=== PATIENT | male | born 1945 | race Caucasian/White ===

== ENCOUNTER 2016-10-08 15:31 | Day surgery (SDC) | payer MEDICARE, OTHER ==
[~2016-10-08 15:31] MED LIST: Depo-Medrol 40 MG/ML IM ONE; Sensorcaine 0.25% 10 ML IJ ONE; Sodium Chloride 0.9(Preservative Free) 10 ML IJ ONE
[2016-10-08 18:19] VITALS: BP 180/100; PULSE 70; O2SAT 100
[2016-10-08] MEDS ORDERED: Lactated Ringers 1,000 ML IV SCH (18:30)
[2016-10-08] MEDS ORDERED: KEFZOL 1 GM ONE (19:30)
--- NOTE | 2016-10-08 21:07 | XRAY ---
Indication: Caudal BILL. Intraoperative fluoroscopy was provided for 8 seconds. 2 digital spot lateral images of the lumbosacral junction submitted for interpretation demonstrates posterior spinal needle with the tip projecting posterior to the inferior sacrum. Small amount of contrast injected for needle tip placement. Correlate with intraoperative findings/report.
--- NOTE | 2016-10-09 08:51 | XRAY ---
8 seconds fluoroscopy time in surgery for caudal BILL.
== END 2016-10-08 19:31 | disposition home or self-care (01) ==
LOC: SDC-PAIN 15:31
PROVIDERS: ATTEND Pain Medicine Interventional Pain Medicine
DX: M48.06 Spinal stenosis, lumbar region (principal); M51.36 Other intervertebral disc degeneration, lumbar region
CPT/HCPCS: 62323; 72020; 77003; J0690; J1030; Q9967

== ENCOUNTER 2016-11-06 07:04 | Day surgery (SDC) | payer MEDICARE, OTHER ==
[2016-11-06] MEDS ORDERED: Sodium Chloride 0.9% 1000 ML 1,000 ML IV SCH (07:30)
[2016-11-06] MEDS ORDERED: DEMEROL 50 MG IJ ONE (08:00)
[2016-11-06] MEDS ORDERED: VERSED 5 MG/5 ML IV ONE (08:00)
[2016-11-06] MEDS ORDERED: Sodium Chloride 0.9% 1000 ML 1,000 ML ONE (09:21)
[2016-11-06 11:22] VITALS: BP 121/64; PULSE 55; O2SAT 93
--- NOTE | 2016-11-07 07:34 | OP ---
SURGERY DATE/TIME: 11/06/2016908 PREOPERATIVE DIAGNOSIS: Blood per rectum. POSTOPERATIVE DIAGNOSIS: Basically normal, moderate internal hemorrhoids. PROCEDURE: Colonoscopy complete to cecum. SURGEON: Scout Nguyen M.D. ANESTHESIA: IV sedation. COMPLICATIONS: None. CONDITION: Stable. INDICATION: The patient presents with blood per rectum. DESCRIPTION OF PROCEDURE: Taken to the endoscopy suite. Left lateral decubitus position. IV sedation titrated. Oximeter kept over 90%. The scope was introduced. The scope advanced to the cecum. A good prep was present 04/22. On circumferential withdrawal no mucosal lesions. There was moderate internal hemorrhoid. The patient tolerated the procedure satisfactorily with oximeter kept over 90%. IMPRESSION: Moderate internal hemorrhoids. No polyps. No mucosal lesions. No sign of bleeding.
== END 2016-11-06 10:40 | disposition home or self-care (01) ==
LOC: SDC 07:04
PROVIDERS: ATTEND Surgery
PROC: 0DJD8ZZ Inspection of Lower Intestinal Tract, Via Natural or Artificial Opening Endoscopic (ICD-10-PCS; principal; 2016-11-06)
DX: K64.8 Other hemorrhoids (principal); K62.5 Hemorrhage of anus and rectum
CPT/HCPCS: J2175; J2250

== ENCOUNTER 2017-01-07 07:58 | Day surgery (SDC) | payer MEDICARE, OTHER ==
[2017-01-07] MEDS ORDERED: Kenalog-40 IM ONE (08:00)
[2017-01-07] MEDS ORDERED: Sensorcaine 0.25% 10 ML IJ ONE (08:00)
[2017-01-07] MEDS ORDERED: Lactated Ringers 1,000 ML IV ONE (08:00)
[2017-01-07] MEDS ORDERED: DIPRIVAN 200 MG/20 ML IV ONE (09:00)
--- NOTE | 2017-01-07 11:14 | XRAY ---
Indication: Left L3-S1 MBB. Intraoperative fluoroscopy was provided for 8 seconds. Single digital spot image submitted for interpretation demonstrates posterior spinal needles with the tips projecting over the expected course of the left L3-S1 nerve roots. Correlate with intraoperative findings/report.
--- NOTE | 2017-01-07 14:56 | XRAY ---
8 seconds fluoroscopy time in surgery for left side L3-S1 MBB.
== END 2017-01-07 09:45 | disposition home or self-care (01) ==
LOC: SDC-PAIN 07:58
PROVIDERS: ATTEND Pain Medicine Interventional Pain Medicine
DX: M48.06 Spinal stenosis, lumbar region (principal); M51.36 Other intervertebral disc degeneration, lumbar region; M54.5 Low back pain
CPT/HCPCS: 64493; 64494; 64495; 72020; 77003; J2704; J3301

== ENCOUNTER 2017-02-11 08:40 | Day surgery (SDC) | payer MEDICARE, OTHER ==
[~2017-02-11 08:40] MED LIST changes: -Depo-Medrol 40 MG/ML IM ONE; +Kenalog-40 IM ONE; +Lactated Ringers 1,000 ML IV ONE; -Sodium Chloride 0.9(Preservative Free) 10 ML IJ ONE
[2017-02-11] MEDS ORDERED: DIPRIVAN 200 MG/20 ML IV ONE (11:30)
--- NOTE | 2017-02-11 17:18 | XRAY ---
11 seconds fluoroscopy time for Lt side L2-5 MBB.
--- NOTE | 2017-02-13 02:22 | XRAY ---
Indication: Right L2-L5 MBB. Intraoperative fluoroscopy was provided for 11 seconds. Single digital spot image is submitted for interpretation and demonstrates posterior spinal needles with the tips projected over the expected course of the right L2-L5 nerve roots. Correlate with intraoperative findings/report.
== END 2017-02-11 11:00 | disposition home or self-care (01) ==
LOC: SDC-PAIN 08:40
PROVIDERS: ATTEND Pain Medicine Interventional Pain Medicine
DX: M48.06 Spinal stenosis, lumbar region (principal); M51.36 Other intervertebral disc degeneration, lumbar region; M54.5 Low back pain; M47.816 Spondylosis without myelopathy or radiculopathy, lumbar region
CPT/HCPCS: 64493; 64494; 64495; 72020; 77003; J2704; J3301

== ENCOUNTER 2017-10-28 08:34 | Day surgery (SDC) | payer MEDICARE, OTHER ==
[2017-10-28] MEDS ORDERED: Xylocaine 1% Vial 30 ML PF IJ ONE (08:35)
[2017-10-28] MEDS ORDERED: Marcaine 0.5% SDV 10 ML IJ ONE (08:35)
[2017-10-28] MEDS ORDERED: DIPRIVAN 200 MG/20 ML IV ONE (08:35)
[2017-10-28] MEDS ORDERED: Lactated Ringers 1,000 ML IV ONE (08:35)
[2017-10-28 09:10] LABS: Hematocrit 35.7 % (42-50); Hemoglobin 11.7 gm/dl (12.5-18.0); Mean Cell Volume 95.7 fl (78-100); Mean Corpuscular Hgb Concent. 32.8 g/dl (32-36); Mean Platelet Volume 8.7 fl (6-9.5); Platelet Count 253 K/mm3 (150-450); Red Blood Count 3.73 M/mm3 (4.1-5.6); Red Cell Distribution Width 14.9 % (11.5-14.0); White Blood Count 5.9 K/mm3 (4.0-10.5)
[2017-10-28 09:12] LABS: Mean Corpuscular Hemoglobin 31.3 pg (26-32)
[2017-10-28 09:33] LABS: INR 1.11 (0.8-3.0)
[2017-10-28 09:35] LABS: PTT 38.4 SECONDS (24.1-36.1)
--- NOTE | 2017-10-28 12:44 | XRAY ---
35 seconds fluoroscopy time in surgery for left side L3-5 BILL.
--- NOTE | 2017-10-28 14:03 | XRAY ---
Indication: Left L3-L4 MBB. Intraoperative fluoroscopy was provided for 35 seconds. 2 digital spot images submitted for interpretation demonstrates posterior spinal needle tips projecting over the expected course of the left L3 and L4 nerve roots. Correlate with intraoperative findings/report.
--- NOTE | 2017-10-28 15:08 | OP ---
DATE OF PROCEDURE: 10/28/2017 1114 SURGEON: Mary Yan D.O. PREOPERATIVE DIAGNOSIS: 1. Degenerative lumbar spine disease, spondylosis, low back pain. POSTOPERATIVE DIAGNOSIS: 1. Degenerative lumbar spine disease, spondylosis, low back pain. PROCEDURE PERFORMED: Left L4-L3 medial branch block under fluoroscopic guidance. DESCRIPTION OF THE PROCEDURE: The patient was taken to the operating room and placed in the prone position on the table. Skin at the injection site was prepped and draped in sterile fashion. Under fluoroscopy, bony anatomy of the targeted injection site was visualized. Induction agent was given as per anesthesia while vital signs were monitored. Local anesthetic agent of 2 cc, 1% Lidocaine was introduced to anesthetize the skin and the subcutaneous tissue through the injection site. Under fluoroscopic guidance, a #20 gauge standard spinal needle was advanced into the target medial branch through the oblique approach. 1 cc of 2% preservative-free Lidocaine was injected into each of the targeted medial branch nerve. After the needle was being removed, the skin was cleansed with alcohol and then a bandage was applied. No complications or adverse consequences were observed. The patient was returned to the holding area until stabilized before discharge to home. After the patient has been fully recovered from anesthesia, the patient states 100% pain reduction after this procedure. The patient will be followed up within ten days after the injection for re-evaluation.
== END 2017-10-28 12:15 | disposition home or self-care (01) ==
LOC: SDC-PAIN 08:34
PROVIDERS: ATTEND Internal Medicine
DX: M47.816 Spondylosis without myelopathy or radiculopathy, lumbar region (principal); M46.96 Unspecified inflammatory spondylopathy, lumbar region; M51.36 Other intervertebral disc degeneration, lumbar region; M62.838 Other muscle spasm
CPT/HCPCS: 36415; 64493; 72020; 77003; 85027; 85610; 85730; J2001; J2704

== ENCOUNTER 2017-12-02 12:06 | Day surgery (SDC) | payer MEDICARE, OTHER ==
[2017-12-02] MEDS ORDERED: Xylocaine-Mpf 2% 5 Ml Vial IJ ONE (12:07)
[2017-12-02] MEDS ORDERED: DIPRIVAN 200 MG/20 ML IV ONE (12:07)
[2017-12-02] MEDS ORDERED: Ketamine HCl 50 MG/ML IV ONE (12:07)
[2017-12-02] MEDS ORDERED: Marcaine 0.5% SDV 10 ML IJ ONE (12:07)
[2017-12-02] MEDS ORDERED: Lactated Ringers 1,000 ML IV ONE (12:07)
[2017-12-02 12:41] LABS: Hematocrit 37.2 % (42-50); Hemoglobin 12.2 gm/dl (12.5-18.0); Mean Cell Volume 98.9 fl (78-100); Mean Corpuscular Hemoglobin 32.4 pg (26-32); Mean Corpuscular Hgb Concent. 32.8 g/dl (32-36); Mean Platelet Volume 8.5 fl (6-9.5); Platelet Count 186 K/mm3 (150-450); Red Blood Count 3.76 M/mm3 (4.1-5.6); Red Cell Distribution Width 15.1 % (11.5-14.0)
[2017-12-02 12:55] LABS: INR 1.11 (0.8-3.0)
[2017-12-02 12:58] LABS: PTT 37.2 SECONDS (24.1-36.1)
--- NOTE | 2017-12-02 14:23 | XRAY ---
Indication: Left L3-L4 RFA. Intraoperative fluoroscopy was provided for 24 seconds. Single digital spot image submitted for interpretation demonstrates posterior spinal needle tips projecting over the left L3 and L4 pedicles. Correlate with intraoperative findings/report. Incidental heavy aortic calcifications.
--- NOTE | 2017-12-02 14:39 | XRAY ---
24 seconds fluoroscopy time in surgery for left L3-4 RFA.
--- NOTE | 2017-12-03 10:55 | OP ---
DATE OF PROCEDURE: 12/02/2017 1331 SURGEON: Mary Yan D.O. PREOPERATIVE DIAGNOSIS: Degenerative lumbosacral spine disease, spondylosis, low back pain. POSTOPERATIVE DIAGNOSIS: Degenerative lumbosacral spine disease, spondylosis, low back pain. PROCEDURES PERFORMED: Left L4-L3 medial branch radiofrequency ablation under fluoroscopic guidance. DESCRIPTION OF PROCEDURE: The patient was taken to the operating room and laid in the prone position on the table. The skin over the injection site was prepped and draped in sterile fashion. Under fluoroscopy bony anatomy of the target injection site was visualized. Induction agent was given as per anesthesia while vital signs were monitored. Local anesthetic agent was introduced to anesthetize the skin and the subcutaneous tissue through the injection site. Under fluoroscopic guidance a standard size spinal needle with cannula was advanced into the target medial branch nerve as per standard protocol. Before the radiofrequency ablation motor and sensory nerve testing was conducted as per protocol. Under the safety guidance which ensured no motor nerves being involved, left L4-L3 medial branch radiofrequency ablation was conducted at 80 degrees Celsius for 90 seconds as per standard protocol. After the spinal needle with the cannula was removed the skin was cleansed with alcohol and then a bandage was applied. No complications or adverse occurrences were observed. The patient was returned to the holding area until stabilized before being discharged to home. The residual pain after the procedure was 0 out of 10. There was no muscle weakness after the procedure. The patient will be followed up within 10 days after the procedure for re-evaluation.
== END 2017-12-02 14:10 | disposition home or self-care (01) ==
LOC: SDC-PAIN 12:06
PROVIDERS: ATTEND Internal Medicine
DX: M46.96 Unspecified inflammatory spondylopathy, lumbar region (principal); M51.36 Other intervertebral disc degeneration, lumbar region; M51.16 Intervertebral disc disorders with radiculopathy, lumbar region; Z79.891 Long term (current) use of opiate analgesic
CPT/HCPCS: 36415; 64635; 64636; 72020; 76000; 85027; 85610; 85730; 99100; J2704

== ENCOUNTER 2018-08-11 09:08 | Day surgery (SDC) | payer MEDICARE, OTHER ==
[2018-08-11] MEDS ORDERED: DIPRIVAN 200 MG/20 ML IV ONE (09:09)
[2018-08-11] MEDS ORDERED: LIDOCAINE HCL 2% 100 MG/5 ML IJ ONE (09:09)
[2018-08-11] MEDS ORDERED: Depo-Medrol 40 MG/ML IM ONE (09:09)
[2018-08-11] MEDS ORDERED: Lactated Ringers 1,000 ML IV ONE (14:50)
--- NOTE | 2018-08-11 16:11 | XRAY ---
6 seconds fluoroscopy time in surgery for bilateral L4-S1 MBB.
--- NOTE | 2018-08-12 04:03 | XRAY ---
Exam: Frontal image of the lower lumbar spine. Indication: Bilateral L4-S1 MBB. 6 seconds of intraoperative fluoroscopy was utilized. A single frontal C-arm image was obtained. Posterior spinal needle tips are seen projected over the expected course of the right and left L4, L5, and S1 nerve roots bilaterally. Correlate with intraoperative findings/report.
== END 2018-08-11 10:45 | disposition home or self-care (01) ==
LOC: SDC-PAIN 09:08
PROVIDERS: ATTEND Psychiatry & Neurology Pain Medicine
DX: M47.816 Spondylosis without myelopathy or radiculopathy, lumbar region (principal); M54.5 Low back pain
CPT/HCPCS: 64493; 64494; 72020; 77003; 99100; J1030; J2704

== ENCOUNTER 2018-09-01 10:33 | Day surgery (SDC) | payer MEDICARE, OTHER ==
[2018-09-01] MEDS ORDERED: Marcaine 0.5% SDV 10 ML IJ ONE (10:34)
[2018-09-01] MEDS ORDERED: Depo-Medrol 40 MG/ML IM ONE (10:34)
[2018-09-01] MEDS ORDERED: DIPRIVAN 200 MG/20 ML IV ONE (10:34)
--- NOTE | 2018-09-01 13:34 | XRAY ---
Indication: Bilateral L4-S1 MBB. Intraoperative fluoroscopy was provided for 9 seconds. Single digital spot image submitted for interpretation demonstrates posterior spinal needle tips along the expected course of the left and right L4-S1 nerve roots. Correlate with intraoperative findings/report.
--- NOTE | 2018-09-01 13:36 | XRAY ---
9 seconds fluoroscopy time in surgery for bilateral L4-S1 MBB.
[2018-09-01] MEDS ORDERED: Lactated Ringers 1,000 ML IV ONE (14:51)
== END 2018-09-01 12:45 | disposition home or self-care (01) ==
LOC: SDC-PAIN 10:33
PROVIDERS: ATTEND Psychiatry & Neurology Pain Medicine
DX: M47.819 Spondylosis without myelopathy or radiculopathy, site unspecified (principal)
CPT/HCPCS: 64493; 64494; 72020; 77003; 99100; J1030; J2704

== ENCOUNTER 2018-10-13 11:34 | Day surgery (SDC) | payer MEDICARE, OTHER ==
[2018-10-13] MEDS ORDERED: Depo-Medrol 40 MG/ML IM ONE (11:35)
[2018-10-13] MEDS ORDERED: Xylocaine 1% Vial 30 ML PF IJ ONE (11:35)
[2018-10-13] MEDS ORDERED: DIPRIVAN 200 MG/20 ML IV ONE (11:35)
[2018-10-13] MEDS ORDERED: Marcaine 0.5% SDV 10 ML IJ ONE (11:35)
[2018-10-13] MEDS ORDERED: Lactated Ringers 1,000 ML IV ONE (15:00)
--- NOTE | 2018-10-13 16:05 | XRAY ---
1 minute and 11 seconds fluoroscopy time in surgery for L4-S1 RFA.
--- NOTE | 2018-10-13 16:15 | XRAY ---
Indication: L4-S1 RFA. Intraoperative fluoroscopy was provided for 1 minute 11 seconds. 3 digital spot images submitted for interpretation demonstrates posterior spinal needle tips projecting over the expected course of the left L4-S1 nerve roots. Correlate with intraoperative findings/report.
== END 2018-10-13 16:10 | disposition home or self-care (01) ==
LOC: SDC-PAIN 11:34
PROVIDERS: ATTEND Psychiatry & Neurology Pain Medicine
DX: M47.816 Spondylosis without myelopathy or radiculopathy, lumbar region (principal); Z79.899 Other long term (current) drug therapy
CPT/HCPCS: 64635; 64636; 72020; 77002; 99100; J1030; J2001; J2704

== ENCOUNTER 2019-01-26 10:43 | Day surgery (SDC) | payer MEDICARE, OTHER ==
[2019-01-26] MEDS ORDERED: Sodium Chloride 0.9(Preservative Free) 10 ML IJ ONE (10:44)
[2019-01-26] MEDS ORDERED: Depo-Medrol 40 MG/ML IM ONE (10:44)
[2019-01-26] MEDS ORDERED: Xylocaine 1% Vial 30 ML PF IJ ONE (10:44)
--- NOTE | 2019-01-26 13:18 | XRAY ---
47 seconds fluoroscopy time in surgery for bilateral L4-S1 BILL.
--- NOTE | 2019-01-26 13:18 | XRAY ---
Indication: L4-S1 BILL. Intraoperative fluoroscopy was provided for 47 seconds. 4 digital spot images submitted for interpretation demonstrates posterior needle tips projecting over the expected course of the left and right L4-L5 nerve roots. Small amount of contrast injected for needle tip placement. Correlate with intraoperative findings/report.
== END 2019-01-26 12:08 | disposition home or self-care (01) ==
LOC: SDC-PAIN 10:43
PROVIDERS: ATTEND Psychiatry & Neurology Pain Medicine
DX: M54.16 Radiculopathy, lumbar region (principal); I10 Essential (primary) hypertension; E78.00 Pure hypercholesterolemia, unspecified; I51.9 Heart disease, unspecified; M06.9 Rheumatoid arthritis, unspecified; M19.90 Unspecified osteoarthritis, unspecified site; I25.2 Old myocardial infarction
CPT/HCPCS: 64483; 64484; 72020; 77003; J1030; J2001; Q9966

== ENCOUNTER 2019-03-04 16:39 | Emergency (ER) | payer MEDICARE, OTHER ==
[2019-03-04 17:05] VITALS: BP 130/62; O2SAT 99
--- NOTE | 2019-03-04 17:54 | ERPHSYRPT ---
- History of Present Illness Time Seen by Provider: 03/04/19 17:43 Source: patient Exam Limitations: no limitations Patient Subjective Stated Complaint: pt here for dizziness today and increase in weakness for a week.no n/v/d or fever, he states hes legs have been swelling more than usual, Triage Nursing Assessment: pt alert,drove self here, resp easy, skin w/d/p. chest clear, pt has edema to lower legs Physician History: Pt is c/o increasing dizziness, and generalized weakness for bout a week, he is also c/o bilateral ankle, foot swelling, almost passing out, had to go back to bed this morning, because of severe weakness. He denies LOC, syncope, no focal weakness, no headaches, chest pain, SOB< cough, fever, nausea, vomiting, diarrhea, black or bloody stool, or other complaints. Timing/Duration: week(s) (1) Severity: severe Modifying Factors: Improves With: nothing Associated Symptoms: other (leg swelling, weakness) Allergies/Adverse Reactions: No Known Drug Allergies Allergy (Verified 03/04/19 17:05) Home Medications: Calcium Citrate/Vitamin D3 [Calcitrate + Vit D Caplet] 1 each PO BID 06/24/13 [ History] Levothyroxine Sodium [Synthroid] 0.15 mcg PO DAILY 06/24/13 [History] Multivitamin [Multivitamins] 1 tab PO DAILY 09/11/16 [History] Amiodarone HCl 200 mg PO DAILY 06/15/17 [History] Aspirin 81 mg PO DAILY 06/15/17 [History] Hydrocodone Bit/Acetaminophen [Nazareth 7.5-325 Tablet] 1 each PO Q6HPRN PRN [History] Clopidogrel Bisulfate 75 mg [PLAVIX 75 MG Tablet] 75 mg PO DAILY 09/29/17 [History] Alendronate Sodium 70 mg [Fosamax 70 MG] 70 mg PO WEEKLY 10/21/17 [History ] Vitamin E 400 Units [Vitamin E 400 UNIT SOFTGEL] 400 unit PO DAILY [History] Iron,Carbonyl [Iron Chews] 65 mg DAILY 03/04/19 [History] Hx Tetanus, Diphtheria Vaccination/Date Given: No Hx Influenza Vaccination/Date Given: Yes Hx Pneumococcal Vaccination/Date Given: Yes Immunizations Up to Date: Yes - Review of Systems Constitutional: Weakness Ears, Nose, & Throat: No Symptoms Respiratory: No Symptoms Cardiac: No Symptoms Abdominal/Gastrointestinal: No Symptoms Genitourinary Symptoms: No Symptoms Musculoskeletal: No Symptoms Skin: No Symptoms Neurological: Dizziness All Other Systems: Reviewed and Negative - Past Medical History Pertinent Past Medical History: Yes Neurological History: No Pertinent History ENT History: Cataracts Cardiac History: Arrhythmia, Coronary Artery Disease, Hypertension Respiratory History: No Pertinent History Endocrine Medical History: Hypothyroidism Musculoskeletal History: Arthritis, Degenerative Disk Disease GI Medical History: Other History: No Pertinent History Psycho-Social History: No Pertinent History Male Reproductive Disorders: No Pertinent History Other Medical History: chronic pain had egd and colonoscopy approximately [address] Nguyen told him he had some areas of irritation and bleeding on the upper scope and put him on meds for it but he doesnt think it has helped. - Past Surgical History Past Surgical History: Yes Neuro Surgical History: No Pertinent History Cardiac: CABG, Cardiac Catheterization, Pacemaker Respiratory: No Pertinent History Gastrointestinal: No Pertinent History Genitourinary: No Pertinent History Musculoskeletal: Other Male Surgical History: No Pertinent History Other Surgical History: had back surgery years ago, had trigger surgery on both thumbs has had heart bypass surgery with 4 bypasses. has had cataracts removed from both eyes. has had colonoscopy and egd in past. patient has pacemaker and defibrillator, BILL few weeks ago - Social History Smoking Status: Former smoker How long have you smoked: 50 years Exposure to second hand smoke: No Drug Use: none Patient Lives Alone: No - Nursing Vital Signs Nursing Vital Signs: Initial Vital Signs Temperature 97.2 F 03/04/19 16:52 Pulse Rate 64 03/04/19 16:52 Respiratory Rate 18 03/04/19 16:52 Blood Pressure 130/62 03/04/19 16:52 O2 Sat by Pulse Oximetry 99 03/04/19 16:52 Pain Scale Pain Intensity 0 - Physical Exam General Appearance: no apparent distress Eye Exam: PERRL/EOMI, eyes nml inspection Ears, Nose, Throat Exam: normal ENT inspection, pharynx normal, moist mucous membranes Neck Exam: normal inspection, non-tender, supple, No carotid bruit, No JVD Respiratory Exam: normal breath sounds, lungs clear, airway intact Cardiovascular Exam: regular rate/rhythm, normal heart sounds, normal peripheral pulses, No murmur Gastrointestinal/Abdomen Exam: soft, normal bowel sounds, other (rectal exam: black, soft stool, no mass, guaiac: positive), No tenderness, No distention, No mass, No guarding, No pulsatile mass, No rebound, No organomegaly Back Exam: normal inspection, No CVA tenderness, No vertebral tenderness Extremity Exam: pedal edema, No calf tenderness, No shaheed's sign Neurologic Exam: alert, oriented x 3, normal mood/affect, nml cerebellar function, No motor deficits Skin Exam: normal color, warm, dry, No rash, No petechiae, No cyanosis, No diaphoresis Lymphatic Exam: No adenopathy SpO2 Interpretation: normal SpO2: 99 O2 Delivery: Room Air - Course Nursing assessment & vital signs reviewed: Yes EKG Interpreted by Me: RATE (72/min), Other (paced) - Radiology Exams Chest X-ray Interpretation: Interpreted by me, Other (cardiomegaly, probably mild CHF) - CT Exams Head CT Interpretation: Negative, Tele-radiologist Report Ordered Tests: Active Orders 24 hr Category Date Time Status Copy Lathe Tender STAT Care 03/04/19 17:49 Active EKG-ER Only STAT Care 03/04/19 17:48 Active IV Insertion STAT Care 03/04/19 17:48 Active Pulse Oximetry (ED) STAT Care 03/04/19 17:48 Active CHEST 1 VIEW (PORTABLE) Stat Exams 03/04/19 17:48 Taken HEAD WITHOUT CONTRAST [CT] Stat Exams 03/04/19 17:49 Taken CBC W DIFF Stat Lab 03/04/19 17:48 Completed CK-Creatinine Phosphokinase Stat Lab 03/04/19 18:25 Completed CMP Stat Lab 03/04/19 18:25 Completed NT PRO BNP Stat Lab 03/04/19 18:25 Completed Occult Blood, Other Screening Stat Lab 03/04/19 19:05 Completed PROTIME WITH INR Stat Lab 03/04/19 18:25 Completed PTT Stat Lab 03/04/19 18:25 Completed TROPONIN Q3H Lab 03/04/19 18:25 Completed TROPONIN Q3H Lab 03/04/19 21:00 Ordered TROPONIN Q3H Lab 03/05/19 00:00 Ordered TROPONIN Q3H Lab 03/05/19 03:00 Ordered TROPONIN Q3H Lab 03/05/19 06:00 Ordered UA W/RFX UR CULTURE Stat Lab 03/04/19 17:50 Completed Urine Triage Profile Stat Lab 03/04/19 17:49 Completed Medication Summary Discontinued Medications Generic Name Dose Route Start Last Admin Trade Name Elza PRN Reason Stop Dose Admin Pantoprazole Sodium 40 mg 03/04/19 19:05 Protonix 40 Mg Iv IV 03/04/19 19:06 STAT ONE Lab/Rad Data: Laboratory Result Diagrams 03/04/19 17:48 03/04/19 18:25 Laboratory Results 03/04/19 03/04/19 03/04/19 Range/Units 19:05 18:25 18:25 WBC (4.0-10.5) K/mm3 RBC (4.1-5.6) M/mm3 Hgb (12.5-18.0) gm/dl Hct (42-50) % MCV (78-100) fl MCH (26-32) pg MCHC (32-36) g/dl RDW (11.5-14.0) % Plt Count (150-450) K/mm3 MPV (6-9.5) fl Gran % (36.0-66.0) % Eos # (Auto) (0-0.5) Absolute Lymphs (auto) (1.0-4.6) Absolute Monos (auto) (0.0-1.3) Lymphocytes % (24.0-44.0) % Monocytes % (0.0-12.0) % Eosinophils % (0.00-5.0) % Basophils % (0.0-0.4) % Absolute Granulocytes (1.4-6.9) Basophils # (0-0.4) PT (8.83-12.87) SECONDS INR (0.8-3.0) APTT (24.1-36.1) SECONDS Sodium (137-145) mmol/L Potassium (3.5-5.1) mmol/L Chloride (98-107) mmol/L Carbon Dioxide (22-30) mmol/L Anion Gap (5-15) MEQ/L BUN (9-20) mg/dL Creatinine (0.66-1.25) mg/dL Estimated GFR ML/MIN Glucose (74-106) mg/dL Calcium (8.4-10.2) mg/dL Total Bilirubin (0.2-1.3) mg/dL AST (17-59) U/L ALT (0-50) U/L Alkaline Phosphatase (38-126) U/L Creatine Kinase (55-170) U/L Troponin I 0.017 (0.000-0.034) ng/mL NT-Pro-B Natriuret Pep 1310 H (0-900) pg/mL Serum Total Protein (6.3-8.2) g/dL Albumin (3.5-5.0) g/dL Urine Color (YELLOW) Urine Appearance (CLEAR) Urine pH (5-6) Ur Specific [place] (1.005-1.025) Urine Protein (Negative) Urine Ketones (NEGATIVE) Urine Blood (0-5) Joby/ul Urine Nitrite (NEGATIVE) Urine Bilirubin (NEGATIVE) Urine Urobilinogen (0-1) mg/dL Ur Leukocyte Esterase (NEGATIVE) Urine WBC (Auto) (0-5) /HPF Urine RBC (Auto) (0-2) /HPF U Hyaline Cast (Auto) (0-2) /LPF U Epithel Cells (Auto) (FEW) /HPF Urine Bacteria (Auto) (NEGATIVE) /HPF Urine Culture Reflexed (NO) Urine Glucose (NEGATIVE) mg/dL Stool Occult Blood POSITIVE A (Negative) Urine Opiates Level (NEGATIVE) Ur Methadone (NEGATIVE) Urine Barbiturates (NEGATIVE) Ur Phencyclidine (PCP) (NEGATIVE) Urine Amphetamine (NEGATIVE) U Benzodiazepine Level (NEGATIVE) Urine Cocaine (NEGATIVE) Urine Marijuana (THC) (NEGATIVE) 03/04/19 03/04/19 03/04/19 Range/Units 18:25 18:25 17:50 WBC (4.0-10.5) K/mm3 RBC (4.1-5.6) M/mm3 Hgb (12.5-18.0) gm/dl Hct (42-50) % MCV (78-100) fl MCH (26-32) pg MCHC (32-36) g/dl RDW (11.5-14.0) % Plt Count (150-450) K/mm3 MPV (6-9.5) fl Gran % (36.0-66.0) % Eos # (Auto) (0-0.5) Absolute Lymphs (auto) (1.0-4.6) Absolute Monos (auto) (0.0-1.3) Lymphocytes % (24.0-44.0) % Monocytes % (0.0-12.0) % Eosinophils % (0.00-5.0) % Basophils % (0.0-0.4) % Absolute Granulocytes (1.4-6.9) Basophils # (0-0.4) PT 11.9 (8.83-12.87) SECONDS INR 1.05 (0.8-3.0) APTT 36.3 H (24.1-36.1) SECONDS Sodium 133 L (137-145) mmol/L Potassium 4.5 (3.5-5.1) mmol/L Chloride 99 (98-107) mmol/L Carbon Dioxide 25 (22-30) mmol/L Anion Gap 13.1 (5-15) MEQ/L BUN 19 (9-20) mg/dL Creatinine 1.44 H (0.66-1.25) mg/dL Estimated GFR 51.0 ML/MIN Glucose 87 (74-106) mg/dL Calcium 8.7 (8.4-10.2) mg/dL Total Bilirubin 0.20 (0.2-1.3) mg/dL AST 27 (17-59) U/L ALT 12 (0-50) U/L Alkaline Phosphatase 48 (38-126) U/L Creatine Kinase 63 (55-170) U/L Troponin I (0.000-0.034) ng/mL NT-Pro-B Natriuret Pep (0-900) pg/mL Serum Total Protein 6.2 L (6.3-8.2) g/dL Albumin 3.5 (3.5-5.0) g/dL Urine Color YELLOW (YELLOW) Urine Appearance CLEAR (CLEAR) Urine pH 6.0 (5-6) Ur Specific [place] 1.006 (1.005-1.025) Urine Protein NEGATIVE (Negative) Urine Ketones NEGATIVE (NEGATIVE) Urine Blood NEGATIVE (0-5) Joby/ul Urine Nitrite NEGATIVE (NEGATIVE) Urine Bilirubin NEGATIVE (NEGATIVE) Urine Urobilinogen NEGATIVE (0-1) mg/dL Ur Leukocyte Esterase NEGATIVE (NEGATIVE) Urine WBC (Auto) NONE (0-5) /HPF Urine RBC (Auto) NONE (0-2) /HPF U Hyaline Cast (Auto) 0-2 (0-2) /LPF U Epithel Cells (Auto) NONE (FEW) /HPF Urine Bacteria (Auto) NONE (NEGATIVE) /HPF Urine Culture Reflexed NO (NO) Urine Glucose NEGATIVE (NEGATIVE) mg/dL Stool Occult Blood (Negative) Urine Opiates Level (NEGATIVE) Ur Methadone (NEGATIVE) Urine Barbiturates (NEGATIVE) Ur Phencyclidine (PCP) (NEGATIVE) Urine Amphetamine (NEGATIVE) U Benzodiazepine Level (NEGATIVE) Urine Cocaine (NEGATIVE) Urine Marijuana (THC) (NEGATIVE) 03/04/19 03/04/19 Range/Units 17:49 17:48 WBC 3.6 L (4.0-10.5) K/mm3 RBC 1.96 L (4.1-5.6) M/mm3 Hgb 6.7 L* (12.5-18.0) gm/dl Hct 21.5 L (42-50) % MCV 109.7 H (78-100) fl MCH 34.1 H (26-32) pg MCHC 31.2 L (32-36) g/dl RDW 18.0 H (11.5-14.0) % Plt Count 206 (150-450) K/mm3 MPV 8.3 (6-9.5) fl Gran % 60.5 (36.0-66.0) % Eos # (Auto) 0.04 (0-0.5) Absolute Lymphs (auto) 0.94 L (1.0-4.6) Absolute Monos (auto) 0.40 (0.0-1.3) Lymphocytes % 26.4 (24.0-44.0) % Monocytes % 11.2 (0.0-12.0) % Eosinophils % 1.1 (0.00-5.0) % Basophils % 0.8 (0.0-0.4) % Absolute Granulocytes 2.15 (1.4-6.9) Basophils # 0.03 (0-0.4) PT (8.83-12.87) SECONDS INR (0.8-3.0) APTT (24.1-36.1) SECONDS Sodium (137-145) mmol/L Potassium (3.5-5.1) mmol/L Chloride (98-107) mmol/L Carbon Dioxide (22-30) mmol/L Anion Gap (5-15) MEQ/L BUN (9-20) mg/dL Creatinine (0.66-1.25) mg/dL Estimated GFR ML/MIN Glucose (74-106) mg/dL Calcium (8.4-10.2) mg/dL Total Bilirubin (0.2-1.3) mg/dL AST (17-59) U/L ALT (0-50) U/L Alkaline Phosphatase (38-126) U/L Creatine Kinase (55-170) U/L Troponin I (0.000-0.034) ng/mL NT-Pro-B Natriuret Pep (0-900) pg/mL Serum Total Protein (6.3-8.2) g/dL Albumin (3.5-5.0) g/dL Urine Color (YELLOW) Urine Appearance (CLEAR) Urine pH (5-6) Ur Specific [place] (1.005-1.025) Urine Protein (Negative) Urine Ketones (NEGATIVE) Urine Blood (0-5) Joby/ul Urine Nitrite (NEGATIVE) Urine Bilirubin (NEGATIVE) Urine Urobilinogen (0-1) mg/dL Ur Leukocyte Esterase (NEGATIVE) Urine WBC (Auto) (0-5) /HPF Urine RBC (Auto) (0-2) /HPF U Hyaline Cast (Auto) (0-2) /LPF U Epithel Cells (Auto) (FEW) /HPF Urine Bacteria (Auto) (NEGATIVE) /HPF Urine Culture Reflexed (NO) Urine Glucose (NEGATIVE) mg/dL Stool Occult Blood (Negative) Urine Opiates Level POSITIVE (NEGATIVE) Ur Methadone NEGATIVE (NEGATIVE) Urine Barbiturates NEGATIVE (NEGATIVE) Ur Phencyclidine (PCP) NEGATIVE (NEGATIVE) Urine Amphetamine NEGATIVE (NEGATIVE) U Benzodiazepine Level NEGATIVE (NEGATIVE) Urine Cocaine NEGATIVE (NEGATIVE) Urine Marijuana (THC) NEGATIVE (NEGATIVE) - Progress Progress: unchanged Progress Note: 03/04/19 19:25 Pt was given Protonix IV, he has been stable hemodynamically, O2 sat: 99% on RA , denies SOB, or chest pain, called Dr Kearns, [employer] covering Dr Lewis, discussed our finding s and this patient's current condition, he accepted patient to be admitted to [facility], as direct admission, patient was informed and agreed, he understood all risks and benefits of his transfer, he has been stable for the transport. Counseled pt/family regarding: lab results, diagnosis, rad results - Departure Departure Disposition: Transfer ([facility] Medical Floor) Clinical Impression: Anemia Qualifiers: Anemia type: iron deficiency Iron deficiency anemia type: unspecified iron deficiency Qualified Code(s): D50.9 - Iron deficiency anemia, unspecified Gastrointestinal bleeding Qualifiers: GI bleed type/associated pathology: unspecified gastrointestinal hemorrhage type Qualified Code(s): K92.2 - Gastrointestinal hemorrhage, unspecified Condition: Stable Critical Care Time: No Referrals: ROLANDO HARRIS MD [Primary Care Provider] - Instructions: Dizziness, Nonvertigo, (DC)
[2019-03-04 18:20] LABS: BASOPHIL % 0.8 % (0.0-0.4); Basophil (Absolute #) 0.03 (0-0.4); Eosinophil % 1.1 % (0.00-5.0); Eosinophil (Absolute #) 0.04 (0-0.5); Granulocyte Absolute (ANC) 2.15 (1.4-6.9); Granulocytes % 60.5 % (36.0-66.0); Hematocrit 21.5 % (42-50); Lymphocyte (Absolute #) 0.94 (1.0-4.6); Lymphocytes % 26.4 % (24.0-44.0); Mean Cell Volume 109.7 fl (78-100); Mean Corpuscular Hgb Concent. 31.2 g/dl (32-36); Mean Platelet Volume 8.3 fl (6-9.5); Monocytes % 11.2 % (0.0-12.0); Platelet Count 206 K/mm3 (150-450); Red Blood Count 1.96 M/mm3 (4.1-5.6); White Blood Count 3.6 K/mm3 (4.0-10.5)
[2019-03-04 18:24] LABS: INR 1.05 (0.8-3.0); PROTIME 11.9 SECONDS (8.83-12.87)
[2019-03-04 18:24] LABS: Mean Corpuscular Hemoglobin 34.1 pg (26-32)
[2019-03-04 18:25] LABS: Hemoglobin 6.7 gm/dl (12.5-18.0)
[2019-03-04 18:26] LABS: PTT 36.3 SECONDS (24.1-36.1)
[2019-03-04 18:29] LABS: ALBUMIN 3.5 g/dL (3.5-5.0); ANION GAP 13.1 MEQ/L (5-15); BILIRUBIN,TOTAL 0.2 mg/dL (0.2-1.3); Calcium 8.7 mg/dL (8.4-10.2); Creatinine 1 1.44 mg/dL (0.66-1.25); Potassium 4.5 mmol/L (3.5-5.1); Total Protein 6.2 g/dL (6.3-8.2)
[2019-03-04 18:33] LABS: Appearance CLEAR (CLEAR); Bilirubin NEGATIVE (NEGATIVE); Blood NEGATIVE Ery/ul (0-5); Glucose NEGATIVE (NEGATIVE); Hyaline Casts 0-2 /LPF (0-2); Ketones NEGATIVE (NEGATIVE); Leukocyte Esterase NEGATIVE (NEGATIVE); Nitrite NEGATIVE (NEGATIVE); Protein,Urine Dip NEGATIVE (Negative); Specific Gravity 1.006 (1.005-1.025); Urobilinogen NEGATIVE mg/dL (0-1)
[2019-03-04 18:45] LABS: Amphetamine,Urine NEGATIVE (NEGATIVE); Barbiturate,Urine NEGATIVE (NEGATIVE); Benzodiazepine,Urine NEGATIVE (NEGATIVE); Cocaine,Urine NEGATIVE (NEGATIVE); Methadone,Urine NEGATIVE (NEGATIVE); Opiate,Urine POSITIVE (NEGATIVE); PCP,Urine NEGATIVE (NEGATIVE); THC,Urine NEGATIVE (NEGATIVE)
[2019-03-04] MEDS ORDERED: PROTONIX 40 MG IV IV ONE (19:05)
[2019-03-04] MEDS ORDERED: Pepcid 20 MG VIAL IV ONE ×2 (19:29→19:36)
[2019-03-04 20:16] VITALS: PULSE 70
--- NOTE | 2019-03-05 08:45 | XRAY ---
Indication: Dizziness. Extremity weakness and edema. Multiple contiguous axial images obtained through the head without contrast. Comparison: None Age-appropriate global atrophy and minimal periventricular degenerative micro-ischemia bilaterally. No acute intracranial hemorrhage, abnormal extra-axial fluid collection, or mass effect. Fourth ventricle is midline without hydrocephalus. Bony calvarium intact. Mild left frontal sinus mucosal thickening and subcentimeter left maxillary sinus polyp/retention cyst. Remaining visualized paranasal sinuses and mastoid air cells are clear. Impression: Nonacute senile brain. Incidental paranasal sinus disease. Comment: Preliminary interpretation was made by [facility]. No critical discrepancy. CTDI 68.15
--- NOTE | 2019-03-05 08:48 | XRAY ---
Indication: Weakness. Comparison: July 20, 2006. Portable apical lordotic chest again demonstrates CABG surgery with new left AICD. Also new cardiomegaly and small left effusion concerning for mild/early cardiac decompensation. Remaining lungs clear. Bony thorax intact with incidental osteopenia, degenerative changes, and old bilateral rib fractures. Impression: New cardiomegaly and small left effusion. Rule out mild/early cardiac decompensation. Superimposed pneumonia not completely excluded.
== END 2019-03-04 20:18 | disposition short-term general hospital (02) ==
LOC: ED 16:39
DX: D64.9 Anemia, unspecified (principal); K92.2 Gastrointestinal hemorrhage, unspecified; Z79.899 Other long term (current) drug therapy; I25.10 Atherosclerotic heart disease of native coronary artery without angina pectoris; I10 Essential (primary) hypertension; E03.9 Hypothyroidism, unspecified; M19.90 Unspecified osteoarthritis, unspecified site; Z95.0 Presence of cardiac pacemaker
CPT/HCPCS: 36415; 70450; 71045; 80053; 80307; 81001; 82272; 82550; 83880; 84484; 85025; 85610; 85730; 96374; 99285

== ENCOUNTER 2019-10-27 08:58 | Day surgery (SDC) | payer MEDICARE, OTHER ==
--- NOTE | 2019-10-25 15:21 | HP ---
DATE OF SURGERY: 10/27/2019 ADMISSION DIAGNOSIS: Positive Cologuard. ANTICIPATED PROCEDURE: Colonoscopy. HISTORY OF PRESENT ILLNESS: PAST MEDICAL HISTORY: ALLERGIES: STATINS. MEDICATIONS: Multiple. PAST SURGICAL HISTORY: Quadruple bypass. Back surgery. Knee surgery. SOCIAL HISTORY: Negative. FAMILY HISTORY: Negative. REVIEW OF SYSTEMS: Bad heart. Bad back. PHYSICAL EXAMINATION: VITAL SIGNS: Normal. CHEST: Clear. COR: Regular. ABDOMEN: Satisfactory. IMPRESSION AND PLAN: Colonoscopy for positive Cologuard.
[2019-10-27] MEDS ORDERED: VERSED 5 MG/5 ML IV ONE (08:59)
[2019-10-27] MEDS ORDERED: DEMEROL 50 MG SDV IV ONE (08:59)
[2019-10-27] MEDS ORDERED: Lactated Ringers 1,000 ML IV ONE (09:47)
[2019-10-27] MEDS ORDERED: Lactated Ringers 1,000 ML IV SCH (10:00)
[2019-10-27 12:51] VITALS: BP 136/61; PULSE 73; O2SAT 94
--- NOTE | 2019-10-27 15:37 | OP ---
SURGERY DATE/TIME: 10/27/2019 1057 PREOPERATIVE DIAGNOSIS: Positive Cologuard. POSTOPERATIVE DIAGNOSES: 1) Small 3 mm polyp in the cecum taken with hot biopsy forceps. 2) Moderate internal hemorrhoids. PROCEDURE: Colonoscopy complete to cecum with hot polypectomy x1. SURGEON: Scout Nguyen M.D. ANESTHESIA: IV sedation 15 minutes monitored. COMPLICATIONS: None. CONDITION: Stable. INDICATION: A patient requiring evaluation. DESCRIPTION OF PROCEDURE: Taken to endoscopy. IV sedation titrated. Oximetry kept over 90%. Comfort level satisfactory. Anal digital examination satisfactory. Prostate satisfactory. Scope advanced to the cecum. Base of cecum, ileocecal valve and appendiceal orifice was all well seen. Initially it had some charcoal-like stool but this was broken down with a diesel power shovel operator and totally cleared. There was a 4 mm polyp in the mid central portion of the cecum taken with hot biopsy forceps. Hemostasis satisfactory. Ascending, hepatic, transverse, splenic, descending, sigmoid, rectum, anus moderate internal hemorrhoids. The patient tolerated the procedure satisfactorily. Follow up in five years.
== END 2019-10-27 12:40 | disposition home or self-care (01) ==
LOC: SDC 08:58
PROVIDERS: ATTEND Surgery
PROC: 0DBH8ZX Excision of Cecum, Via Natural or Artificial Opening Endoscopic, Diagnostic (ICD-10-PCS; principal; 2019-10-27)
DX: D12.0 Benign neoplasm of cecum (principal); K63.5 Polyp of colon; R19.5 Other fecal abnormalities; K64.8 Other hemorrhoids
CPT/HCPCS: J2175; J2250

== ENCOUNTER 2020-03-28 09:44 | Observation (INO) | payer MEDICARE, OTHER ==
[2020-03-28] MEDS ORDERED: TORAdol 30 mg Injection IV ONE (09:50)
[2020-03-28] MEDS ORDERED: Zosyn 3.375 GM Vial 3.375 GM in Sodium Chloride 100ML MINI-BAG PLUS 100 ML IV ONE (09:53)
[2020-03-28] MEDS ORDERED: VANCOMYCIN 1 GRAM/200 ML BAG 1 GM/200 ML PIGGYBACK IV ONE ×2 (09:55→10:45)
--- NOTE | 2020-03-28 10:01 | ERPHSYRPT ---
- History of Present Illness Time Seen by Provider: 03/28/20 09:57 Source: patient Exam Limitations: no limitations Physician History: Patient is a 74-year-old male who presents to our ED as a referral from orthopedic clinic for evaluation of swelling of his left hand. Patient attributes his hand swelling to his hospitalization last month where an IV had been placed in his left upper extremity. Pain has gotten progressively worse. Pain described as an ache that is localized to the left hand and forearm. No blunt trauma. No fever. No nausea or vomiting. Tetanus is up-to-date according to patient. Patient voices no other complaints at this time. Occurred: days ago Method of Injury: other (Suspects infection due to IV at left hand.) Quality: constant, other Severity of Pain-Max: moderate (Pain is progressive.) Severity of Pain-Current: mild Extremities Pain Location: hand: left Modifying Factors: Improves With: movement Associated Symptoms: No chills, No chest pain, No dyspnea, No sweating, No short of breath, No vomiting Allergies/Adverse Reactions: Vbljnff-Lgd-Ssd Reductase Inhibitor Adverse Reaction (Intermediate, Verified 03/28/20 10:04) Muscle Aches Home Medications: Calcium Citrate/Vitamin D3 [Calcitrate + Vit D Caplet] 1 each PO BID 06/24/13 [History] Levothyroxine Sodium [Synthroid] 0.15 mcg PO DAILY 06/24/13 [History] Alendronate Sodium 70 mg [Fosamax 70 MG] 70 mg PO WEEKLY 10/21/17 [History] Vitamin E 400 Units [Vitamin E 400 UNIT SOFTGEL] 400 unit PO DAILY 03/31 [History] Iron 2 tab PO BID 04/29/19 [History] Sacubitril/Valsartan [Entresto 24 mg-26 mg Tablet] 1 each PO BID 04/29/19 [History] Metoprolol Tartrate 25 mg [Lopressor 25MG Tab] 25 mg PO DAILY 10/27/19 [History] Fludrocortisone Acetate 0.1 mg PO DAILY 03/28/20 [History] Furosemide 40 mg PO DAILY 03/28/20 [History] Oxycodone HCl [Oxycontin] 10 mg PO Q46H 03/28/20 [History] Hx Tetanus, Diphtheria Vaccination/Date Given: No Hx Influenza Vaccination/Date Given: Yes Hx Pneumococcal Vaccination/Date Given: Yes - Review of Systems Constitutional: No Symptoms, No Fever, No Chills Eyes: No Symptoms Ears, Nose, & Throat: No Symptoms Respiratory: No Symptoms, No Cough, No Dyspnea Cardiac: No Symptoms, No Chest Pain, No Edema, No Syncope Abdominal/Gastrointestinal: No Symptoms, No Abdominal Pain, No Nausea, No Vomiting, No Diarrhea Genitourinary Symptoms: No Symptoms, No Dysuria Musculoskeletal: No Symptoms, No Back Pain, No Neck Pain Skin: No Symptoms, No Rash Neurological: No Symptoms, No Dizziness, No Focal Weakness, No Sensory Changes Psychological: No Symptoms Endocrine: No Symptoms Hematologic/Lymphatic: No Symptoms Immunological/Allergic: No Symptoms All Other Systems: Reviewed and Negative - Past Medical History Pertinent Past Medical History: Yes Neurological History: No Pertinent History ENT History: Cataracts Cardiac History: Arrhythmia, Congestive Heart Failure, Coronary Artery Disease, Hypertension Respiratory History: No Pertinent History Endocrine Medical History: Hypothyroidism Musculoskeletal History: Arthritis, Degenerative Disk Disease GI Medical History: Other History: No Pertinent History Psycho-Social History: No Pertinent History Male Reproductive Disorders: No Pertinent History Other Medical History: chronic pain had egd and colonoscopy approximately [address] Nguyen told him he had some areas of irritation and bleeding on the upper scope and put him on meds for it but he doesnt think it has helped. - Past Surgical History Past Surgical History: Yes Neuro Surgical History: No Pertinent History Cardiac: CABG, Cardiac Catheterization, Pacemaker Respiratory: No Pertinent History Gastrointestinal: No Pertinent History Genitourinary: No Pertinent History Musculoskeletal: Other Male Surgical History: No Pertinent History Other Surgical History: had back surgery years ago, had trigger surgery on both thumbs has had heart bypass surgery with 4 bypasses. has had cataracts removed from both eyes. has had colonoscopy and egd in past. patient has pacemaker and defibrillator, BILL few weeks ago - Social History Smoking Status: Former smoker How long have you smoked: 50 years Exposure to second hand smoke: No Drug Use: none Patient Lives Alone: No - Nursing Vital Signs Nursing Vital Signs: Initial Vital Signs Temperature 98.1 F 03/28/20 09:45 Pulse Rate 66 03/28/20 09:45 Blood Pressure 158/77 03/28/20 09:45 O2 Sat by Pulse Oximetry 98 03/28/20 09:45 Pain Scale Pain Intensity 10 - Physical Exam General Appearance: no apparent distress, alert Eyes, Ears, Nose, Throat Exam: moist mucous membranes Neck Exam: normal inspection, non-tender, supple Cardiovascular/Respiratory Exam: chest non-tender, normal breath sounds, regular rate/rhythm, no respiratory distress Abdominal Exam: non-tender, No guarding Back Exam: normal inspection, No vertebral tenderness Shoulder Exam: normal inspection Elbow/Forearm Exam: normal inspection, swelling Wrist Exam: swelling (There is swelling at dorsum of left hand and forearm. There appears to be proximal spread due to lymphangitis along the volar aspect of his left forearm. This extends up to mid forearm. Compartments are soft. Cap refill less than 2 seconds. Radial pulses palpable. Motor function within normal ) Hand Exam: infection, soft tissue tenderness, swelling Neuro/Tendon Exam: normal sensation, normal motor functions Mental Status Exam: alert, oriented x 3, cooperative Skin Exam: normal color, warm, dry SpO2 Interpretation: normal SpO2: 98 O2 Delivery: Room Air - Course Nursing assessment & vital signs reviewed: Yes - Radiology Exams Hand X-ray Interpretation: Teleradiologist Report (Steel yao, third phalanx tuft amputation, advanced second digit PIP degenerative changes, markedly advanced first MCP scaphoid degenerative changes with heterotopic ossifications and scattered vascular calcifications no other bony articular or soft tissue abnormalities.) - Radiology Ultrasound Exam Venous Upper Extremity Ultrasound: tele radiology report (No DVT) Ordered Tests: Active Orders 24 hr Category Date Time Status IV Insertion STAT Care 03/28/20 09:47 Active Pulse Oximetry (ED) STAT Care 03/28/20 09:47 Active HAND (MINIMUM 3 VIEWS) Stat Exams 03/28/20 09:51 Completed VENOUS UNILAT/LIMITED EXTREMIT [US] Stat Exams 03/28/20 09:52 Completed BLOOD CULTURE Stat Lab 03/28/20 10:10 Received CBC W DIFF Stat Lab 03/28/20 10:00 Completed CMP Stat Lab 03/28/20 10:00 Completed Lactic Acid Stat Lab 03/28/20 09:55 Completed UA W/RFX UR CULTURE Stat Lab 03/28/20 09:48 Uncollected Transfer Order Routine Transfer 03/28/20 Ordered Medication Summary Generic Name Dose Route Start Last Admin Trade Name Freq PRN Reason Stop Dose Admin Sodium Chloride 1,000 mls @ 100 mls/hr 03/28/20 10:00 03/28/20 11:20 Sodium Chloride 0.9% 1000 Ml IV 04/27/20 09:59 100 mls/hr .Q10H SARA Administration Discontinued Medications Generic Name Dose Route Start Last Admin Trade Name Elza PRN Reason Stop Dose Admin Piperacillin Sod/Tazobactam 100 mls @ 200 mls/hr 03/28/20 09:53 03/28/20 11:14 Sod 3.375 gm/ Sodium Chloride IV 03/28/20 10:22 200 mls/hr STAT ONE Administration Vancomycin HCl 1 gm in 200 mls @ 125 mls/hr 03/28/20 09:55 03/28/20 11:19 Vancomycin 1 Gram/200 Ml Bag IV 03/28/20 11:30 125 mls/hr STAT ONE 125 mls/hr Administration Vancomycin HCl Confirm 03/28/20 10:45 Vancomycin 1 Gram/200 Ml Bag Administered 03/28/20 10:46 Dose 1 gm in 200 mls @ ud IV .STK-MED ONE Sodium Chloride Confirm 03/28/20 10:51 Sodium Chloride 0.9% 100 Ml Ivpb Administered 03/28/20 10:52 Dose 100 mls @ ud IV .STK-MED ONE Ketorolac Tromethamine 30 mg 03/28/20 09:50 03/28/20 11:14 Toradol 30 Mg Injection IV 03/28/20 09:51 30 mg STAT ONE Administration Ketorolac Tromethamine Confirm 03/28/20 10:44 Toradol 30 Mg Injection Administered 03/28/20 10:45 Dose 30 mg .ROUTE .STK-MED ONE Piperacillin Sod/Tazobactam Sod Confirm 03/28/20 10:44 Zosyn 3.375 Gm Vial Administered 03/28/20 10:45 Dose 3.375 gm IV .STK-MED ONE Lab/Rad Data: Laboratory Result Diagrams 03/28/20 10:00 03/28/20 10:00 Laboratory Results 03/28/20 03/28/20 03/28/20 Range/Units 10:00 10:00 09:55 WBC 6.5 (4.0-10.5) K/mm3 RBC 3.10 L (4.1-5.6) M/mm3 Hgb 9.8 L (12.5-18.0) gm/dl Hct 31.3 L (42-50) % MCV 101.0 H (78-100) fl MCH 31.6 (26-32) pg MCHC 31.3 L (32-36) g/dl RDW 14.0 (11.5-14.0) % Plt Count 219 (150-450) K/mm3 MPV 8.7 (7.5-11.0) fl Gran % 66.3 H (36.0-66.0) % Eos # (Auto) 0.12 (0-0.5) Absolute Lymphs (auto) 1.09 (1.0-4.6) Absolute Monos (auto) 0.93 (0.0-1.3) Lymphocytes % 16.8 L (24.0-44.0) % Monocytes % 14.4 H (0.0-12.0) % Eosinophils % 1.9 (0.00-5.0) % Basophils % 0.6 (0.0-0.4) % Absolute Granulocytes 4.29 (1.4-6.9) Basophils # 0.04 (0-0.4) Sodium 137 (137-145) mmol/L Potassium 3.6 (3.5-5.1) mmol/L Chloride 98 (98-107) mmol/L Carbon Dioxide 31 H (22-30) mmol/L Anion Gap 11.1 (5-15) MEQ/L BUN 12 (9-20) mg/dL Creatinine 1.10 (0.66-1.25) mg/dL Estimated GFR > 60.0 ML/MIN Glucose 85 (74-106) mg/dL Lactic Acid 0.7 (0.4-2.0) Calcium 8.9 (8.4-10.2) mg/dL Total Bilirubin 0.70 (0.2-1.3) mg/dL AST 28 (17-59) U/L ALT 10 (0-50) U/L Alkaline Phosphatase 70 (38-126) U/L Serum Total Protein 7.0 (6.3-8.2) g/dL Albumin 3.7 (3.5-5.0) g/dL - Progress Progress: improved (Talk to them for L) Progress Note: 03/28/20 11:57 Patient reassessed. Pain improved. Antibiotics infused. Ultrasound negative for DVT. X-ray negative for fracture dislocation. Case discussed with admission to observation. Plan of care discussed with patient. He agrees to admission to [facility] for further evaluation and treatment. Discussed with Dr.: Sahra Counseled pt/family regarding: lab results, diagnosis, rad results - Departure Departure Disposition: Home Clinical Impression: Hand abrasion, infected, Lymphangitis, Megaloblastic anemia Condition: Stable Critical Care Time: No Referrals: ROLANDO HARRIS MD [Primary Care Provider] -
[2020-03-28 10:19] LABS: Absolute Neutrophil Ct (ANC) 4.29 (1.4-6.9); BASOPHIL % 0.6 % (0.0-0.4); Basophil (Absolute #) 0.04 (0-0.4); Eosinophil % 1.9 % (0.00-5.0); Eosinophil (Absolute #) 0.12 (0-0.5); Hematocrit 31.3 % (42-50); Hemoglobin 9.8 gm/dl (12.5-18.0); Lymphocyte (Absolute #) 1.09 (1.0-4.6); Lymphocytes % 16.8 % (24.0-44.0); Mean Corpuscular Hemoglobin 31.6 pg (26-32); Mean Corpuscular Hgb Concent. 31.3 g/dl (32-36); Mean Platelet Volume 8.7 fl (7.5-11.0); Monocyte (Absolute #) 0.93 (0.0-1.3); Monocytes % 14.4 % (0.0-12.0); Neutrophil % 66.3 % (36.0-66.0); Platelet Count 219 K/mm3 (150-450); White Blood Count 6.5 K/mm3 (4.0-10.5)
[2020-03-28 10:29] LABS: ALBUMIN 3.7 g/dL (3.5-5.0); ALKALINE PHOSPHATASE 70 U/L (38-126); ANION GAP 11.1 MEQ/L (5-15); BLOOD UREA NITROGEN 12 mg/dL (9-20); CHLORIDE 98 mmol/L (98-107); Calcium 8.9 mg/dL (8.4-10.2); Carbon Dioxide 31 mmol/L (22-30); Glucose 85 mg/dL (74-106); Potassium 3.6 mmol/L (3.5-5.1); SGOT/AST 28 U/L (17-59); SGPT/ALT 10 U/L (0-50); SODIUM 137 mmol/L (137-145)
[2020-03-28] MEDS ORDERED: Zosyn 3.375 GM Vial IV ONE ×2 (10:44→23:58)
[2020-03-28] MEDS ORDERED: TORAdol 30 mg Injection ONE (10:44)
[2020-03-28] MEDS ORDERED: Sodium Chloride 0.9% 100 ML IVPB 100 ML IV ONE (10:51)
--- NOTE | 2020-03-28 11:06 | XRAY ---
Indication: Left hand pain and swelling. Two-dimensional sonogram and color Doppler imaging of the major venous vessels of the left upper extremity was performed. Comparison: None No thrombus seen of the visualized left internal jugular, subclavian, axillary, cephalic, brachial, basilic, radial, and ulnar veins. Veins demonstrate normal compressibility. Venous waveforms are normal. Impression: Left upper extremity negative for DVT.
--- NOTE | 2020-03-28 11:14 | XRAY ---
Indication: Pain and swelling. No known injury. 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 No other bony, articular, or soft tissue abnormalities.
[2020-03-28] MEDS: Sodium Chloride 0.9% 1000 ML 1,000 ML IV SCH ×2 (11:20→21:40)
[2020-03-28] MEDS ORDERED: Zofran 4 MG/2 ML VIAL IV PRN (12:54)
[2020-03-28] MEDS ORDERED: OXYCODONE HCL 10 MG PO PRN (15:33)
[2020-03-28] MEDS ORDERED: Oxy-IR 5 MG PO PRN (15:36)
[2020-03-28] MEDS ORDERED: MEDICATION INTERVENTION PO SCH (15:45)
[2020-03-28 19:09] LABS: Appearance CLEAR (CLEAR); Bilirubin NEGATIVE (NEGATIVE); Blood NEGATIVE Ery/ul (0-5); Glucose NEGATIVE (NEGATIVE); Ketones NEGATIVE (NEGATIVE); Leukocyte Esterase NEGATIVE (NEGATIVE); Nitrite NEGATIVE (NEGATIVE); Protein,Urine Dip NEGATIVE (Negative); Specific Gravity 1.011 (1.005-1.025); Urobilinogen NEGATIVE mg/dL (0-1)
[2020-03-28 19:27] LABS: Bacteria NONE SEEN /HPF (NEGATIVE); RBC NONE SEEN /HPF (0-2)
[2020-03-28] MEDS: MORPHINE SULFATE 2 MG INJ IV PRN (19:47)
[2020-03-28] MEDS ORDERED: [UNRECOGNIZED DRUG - OTHER] PO SCH (22:00)
[2020-03-28] MEDS ORDERED: NON-FORMULARY ITEM (Sacubitril/Valsartan [Entresto 24 Mg-26 Mg Tablet] 1 EACH) PO SCH (22:00)
[2020-03-28] MEDS: ENTRESTO 49 MG-51 MG TABLET PO SCH (22:19)
[2020-03-29] MEDS ORDERED: Sodium Chloride 0.9% 100 ML IVPB 100 ML IV ONE (00:02)
[2020-03-29] MEDS: MORPHINE SULFATE 2 MG INJ IV PRN ×2 (00:12→06:16)
[2020-03-29] MEDS: Zosyn 3.375 GM Vial 3.375 GM in Sodium Chloride 100ML MINI-BAG PLUS 100 ML IV SCH ×2 (00:40→06:19)
[2020-03-29 05:12] LABS: Absolute Neutrophil Ct (ANC) 2.25 (1.4-6.9); BASOPHIL % 0.5 % (0.0-0.4); Basophil (Absolute #) 0.02 (0-0.4); Eosinophil % 3.2 % (0.00-5.0); Eosinophil (Absolute #) 0.12 (0-0.5); Hemoglobin 8.4 gm/dl (12.5-18.0); Lymphocyte (Absolute #) 0.81 (1.0-4.6); Lymphocytes % 21.6 % (24.0-44.0); Mean Cell Volume 101.9 fl (78-100); Mean Corpuscular Hemoglobin 31.7 pg (26-32); Mean Corpuscular Hgb Concent. 31.1 g/dl (32-36); Mean Platelet Volume 8.8 fl (7.5-11.0); Monocyte (Absolute #) 0.55 (0.0-1.3); Monocytes % 14.7 % (0.0-12.0); Platelet Count 159 K/mm3 (150-450); Red Blood Count 2.65 M/mm3 (4.1-5.6); Red Cell Distribution Width 13.8 % (11.5-14.0); White Blood Count 3.8 K/mm3 (4.0-10.5)
[2020-03-29 05:34] LABS: ALBUMIN 2.7 g/dL (3.5-5.0); ALKALINE PHOSPHATASE 50 U/L (38-126); ANION GAP 8.9 MEQ/L (5-15); BLOOD UREA NITROGEN 16 mg/dL (9-20); CHLORIDE 104 mmol/L (98-107); Calcium 7.8 mg/dL (8.4-10.2); Carbon Dioxide 27 mmol/L (22-30); Creatinine 1 1.14 mg/dL (0.66-1.25); Glucose 101 mg/dL (74-106); SGOT/AST 22 U/L (17-59); SGPT/ALT 7 U/L (0-50); SODIUM 137 mmol/L (137-145); Total Protein 5.4 g/dL (6.3-8.2)
[2020-03-29 05:47] LABS: Potassium 2.9 mmol/L (3.5-5.1)
[2020-03-29] MEDS ORDERED: Zosyn 3.375 GM Vial IV ONE (05:59)
[2020-03-29] MEDS ORDERED: Sodium Chloride 100ML MINI-BAG PLUS 100 ML IV ONE (06:01)
[2020-03-29] MEDS: POTASSIUM CHLORIDE 20 mEq IN WATER 100ML 20 MEQ/100 ML BAG IV SCH ×2 (07:03→08:40)
[2020-03-29 08:14] VITALS: O2SAT 97
[2020-03-29] MEDS: ENTRESTO 49 MG-51 MG TABLET PO SCH (08:41)
[2020-03-29] MEDS: Sodium Chloride 0.9% 1000 ML 1,000 ML IV SCH (08:44)
[2020-03-29] MEDS ORDERED: MEDICATION INTERVENTION PO SCH (08:45)
[2020-03-29] MEDS ORDERED: Magnesium Sulfate 1 GM/2 ML VIAL IV ONE (09:00)
[2020-03-29] MEDS: Magnesium 1 Gm / 100 Ml D5W*** 100 ML IV SCH ×2 (09:14→09:55)
--- NOTE | 2020-03-29 09:56 | PCM.SSS ---
History of Present Illness - Chief Complaint Chief Complaint: HAND INFECTION, LYMPHANGITIS History of Present Illness: is a 74 year old male pt of Dr. Harris who came in through ER with L hand swelling, erythema, and pain and was admitted for cellulitis. He was taken up to [facility] a few days ago for CP/r/o ME and he had an IV placed in the dorsum of that hand. Since then he had pain and subsequent swelling. Unable to move the hand much. No fever. Overnight his hand edema has decreased and erythema resolved. He is able to move the hand and nearly to form a fist. Colleen po. Would really like to go home today to his cat. States he has no friends "I don't like to socialize." Potassium 2.9 this morning, he says this often happens when he's in the hospital and he's interested in a supplement. Will be sent home with levaquin po; he will watch carefully for signs of increased infection and return to hospital if needed. F/u with Dr. Harris in 1 week. - Review of Systems Musculoskeletal: Joint Pain, Joint Swelling Skin: Cellulitis All Other Systems: Reviewed and Negative Medications & Allergies Home Medications: Home Medication List Calcium Citrate/Vitamin D3 [Calcitrate + Vit D Caplet] 1 each PO BID 06/24/13 [History Confirmed 03/28/20] Levothyroxine Sodium [Synthroid] 150 mcg PO DAILY 06/24/13 [History Confirmed 03/28/20] Alendronate Sodium 70 mg [Fosamax 70 MG] 70 mg PO WEEKLY 10/21/17 [History Confirmed 03/28/20] Vitamin E 400 Units [Vitamin E 400 UNIT SOFTGEL] 400 unit PO DAILY 10/21/17 [History Confirmed 03/28/20] Sacubitril/Valsartan [Entresto 24 mg-26 mg Tablet] 1 each PO BID 04/29/19 [History Confirmed 03/28/20] Metoprolol Tartrate 25 mg [Lopressor 25MG Tab] 25 mg PO DAILY 10/27/19 [History Confirmed 03/28/20] Ferrous Sulfate [Iron] 650 mg PO BID 03/28/20 [History Confirmed 03/28/20] Fludrocortisone Acetate 0.1 mg PO DAILY 03/28/20 [History Confirmed 03/28/20] Furosemide 40 mg PO DAILY 03/28/20 [History Confirmed 03/28/20] Non-Formulary Drug [Non-Formulary Item] 1 cap PO BID 03/28/20 [History Confirmed 03/28/20] Oxycodone HCl [Oxycontin] 10 mg PO Q4H PRN PRN 03/28/20 [History Confirmed 03/28/20] Levofloxacin [Levaquin] 500 mg PO DAILY #9 tablet 03/29/20 [Rx] Mag Oxide/D3/Turmeric Rt Xt [Magnesium-Vit D3-Turmeric Tab] 1 each PO DAILY #30 tablet 03/29/20 [Rx] Potassium Chloride 10 Meq Tab* [Klor Con 10 MEQ] 20 meq PO DAILY #60 tab 03/29/20 [Rx] Allergies/Adverse Reactions: Allergies Allergy/AdvReac Type Severity Reaction Status Date / Time [id number] Reductase AdvReac Intermediate Muscle Verified 03/28/20 10:04 Inhibitor Aches - Past Medical History Past Medical History: Yes Neurological History: No Pertinent History ENT History: Cataracts Cardiac History: Arrhythmia, Congestive Heart Failure, Coronary Artery Disease, Hypertension Respiratory History: No Pertinent History Endocrine Medical History: Hypothyroidism Musculoskelatal History: Arthritis, Degenerative Disk Disease GI Medical History: Other History: No Pertinent History Pyscho-Social History: No Pertinent History Male Reproductive Disorders: No Pertinent History Comment: chronic pain had egd and colonoscopy approximately [address] Nguyen told him he had some areas of irritation and bleeding on the upper scope and put him on meds for it but he doesnt think it has helped. - Past Surgical History Past Surgical History: Yes Neuro Surgical History: No Pertinent History Cardiac History: CABG, Cardiac Catheterization, Pacemaker Respiratory Surgery: No Pertinent History GI Surgical History: No Pertinent History Genitourinary Surgical Hx: No Pertinent History Musculskeletal Surgical Hx: Other Male Surgical History: No Pertinent History Other Surgical History: had back surgery years ago, had trigger surgery on both thumbs has had heart bypass surgery with 4 bypasses. has had cataracts removed from both eyes. has had colonoscopy and egd in past. patient has pacemaker and defibrillator, BILL few weeks ago - Social History Smoking Status: Former smoker How long have you smoked: 50 years Exposure to second hand smoke: No Alcohol: None Drug Use: none - Physical Exam Vital Signs: Vital Signs - 24 hr Temp Pulse Resp BP Pulse Ox 03/29/20 08:00 98.2 F 62 18 147/71 97 03/29/20 04:00 98.3 F 64 18 122/58 93 L 03/29/20 00:00 98.4 F 66 18 127/58 95 03/28/20 20:00 67 18 103/50 96 03/28/20 16:00 98.0 F 68 18 102/46 96 03/28/20 13:37 98.1 F 66 18 158/77 98 03/28/20 12:54 98 03/28/20 11:59 98 03/28/20 10:04 98 General Appearance: no apparent distress, alert Neurologic Exam: oriented x 3, cooperative Eye Exam: eyes nml inspection Ears, Nose, Throat Exam: moist mucous membranes Neck Exam: normal inspection, non-tender, No lymphadenopathy Respiratory Exam: normal breath sounds, lungs clear, No crackles/rales, No rhonchi, No wheezing Cardiovascular Exam: regular rate/rhythm, normal heart sounds, murmur (II/ sys murmur) Gastrointestinal/Abdomen Exam: soft, normal bowel sounds, No tenderness, No distention, No mass, No guarding, No rebound Back Exam: normal inspection, No rash Extremity Exam: swelling (LUE edematous hand. NTTP. no erythema. radial pulse 2+. deformities of 2nd and 3rd digits which are remote.), No pedal edema Skin Exam: normal color, warm, dry, No rash Results - Labs Lab/Micro Results: Lab Results-Last 24 Hours 03/28/20 03/28/20 03/28/20 Range/Units 09:55 10:00 10:00 WBC 6.5 (4.0-10.5) K/mm3 RBC 3.10 L (4.1-5.6) M/mm3 Hgb 9.8 L (12.5-18.0) gm/dl Hct 31.3 L (42-50) % MCV 101.0 H (78-100) fl MCH 31.6 (26-32) pg MCHC 31.3 L (32-36) g/dl RDW 14.0 (11.5-14.0) % Plt Count 219 (150-450) K/mm3 MPV 8.7 (7.5-11.0) fl Gran % 66.3 H (36.0-66.0) % Eos # (Auto) 0.12 (0-0.5) Absolute Lymphs (auto) 1.09 (1.0-4.6) Absolute Monos (auto) 0.93 (0.0-1.3) Lymphocytes % 16.8 L (24.0-44.0) % Monocytes % 14.4 H (0.0-12.0) % Eosinophils % 1.9 (0.00-5.0) % Basophils % 0.6 (0.0-0.4) % Absolute Granulocytes 4.29 (1.4-6.9) Basophils # 0.04 (0-0.4) Sodium 137 (137-145) mmol/L Potassium 3.6 (3.5-5.1) mmol/L Chloride 98 (98-107) mmol/L Carbon Dioxide 31 H (22-30) mmol/L Anion Gap 11.1 (5-15) MEQ/L BUN 12 (9-20) mg/dL Creatinine 1.10 (0.66-1.25) mg/dL Estimated GFR > 60.0 ML/MIN Glucose 85 (74-106) mg/dL Lactic Acid 0.7 (0.4-2.0) Calcium 8.9 (8.4-10.2) mg/dL Magnesium (1.6-2.3) mg/dL Total Bilirubin 0.70 (0.2-1.3) mg/dL AST 28 (17-59) U/L ALT 10 (0-50) U/L Alkaline Phosphatase 70 (38-126) U/L Serum Total Protein 7.0 (6.3-8.2) g/dL Albumin 3.7 (3.5-5.0) g/dL Urine Color (YELLOW) Urine Appearance (CLEAR) Urine pH (5-6) Ur Specific Dent (1.005-1.025) Urine Protein (Negative) Urine Ketones (NEGATIVE) Urine Blood (0-5) Joby/ul Urine Nitrite (NEGATIVE) Urine Bilirubin (NEGATIVE) Urine Urobilinogen (0-1) mg/dL Ur Leukocyte Esterase (NEGATIVE) Urine WBC (Auto) (0-5) /HPF Urine RBC (Auto) (0-2) /HPF U Epithel Cells (Auto) (FEW) /HPF Urine Bacteria (Auto) (NEGATIVE) /HPF Urine Culture Reflexed (NO) Urine Glucose (NEGATIVE) mg/dL 03/28/20 03/29/20 03/29/20 Range/Units 18:44 04:50 04:50 WBC 3.8 L (4.0-10.5) K/mm3 RBC 2.65 L (4.1-5.6) M/mm3 Hgb 8.4 L (12.5-18.0) gm/dl Hct 27.0 L (42-50) % MCV 101.9 H (78-100) fl MCH 31.7 (26-32) pg MCHC 31.1 L (32-36) g/dl RDW 13.8 (11.5-14.0) % Plt Count 159 (150-450) K/mm3 MPV 8.8 (7.5-11.0) fl Gran % 60.0 (36.0-66.0) % Eos # (Auto) 0.12 (0-0.5) Absolute Lymphs (auto) 0.81 L (1.0-4.6) Absolute Monos (auto) 0.55 (0.0-1.3) Lymphocytes % 21.6 L (24.0-44.0) % Monocytes % 14.7 H (0.0-12.0) % Eosinophils % 3.2 (0.00-5.0) % Basophils % 0.5 (0.0-0.4) % Absolute Granulocytes 2.25 (1.4-6.9) Basophils # 0.02 (0-0.4) Sodium 137 (137-145) mmol/L Potassium 2.9 L* (3.5-5.1) mmol/L Chloride 104 (98-107) mmol/L Carbon Dioxide 27 (22-30) mmol/L Anion Gap 8.9 (5-15) MEQ/L BUN 16 (9-20) mg/dL Creatinine 1.14 (0.66-1.25) mg/dL Estimated GFR > 60.0 ML/MIN Glucose 101 (74-106) mg/dL Lactic Acid (0.4-2.0) Calcium 7.8 L (8.4-10.2) mg/dL Magnesium (1.6-2.3) mg/dL Total Bilirubin 0.40 (0.2-1.3) mg/dL AST 22 (17-59) U/L ALT 7 (0-50) U/L Alkaline Phosphatase 50 (38-126) U/L Serum Total Protein 5.4 L (6.3-8.2) g/dL Albumin 2.7 L (3.5-5.0) g/dL Urine Color YELLOW (YELLOW) Urine Appearance CLEAR (CLEAR) Urine pH 6.0 (5-6) Ur Specific Dent 1.011 (1.005-1.025) Urine Protein NEGATIVE (Negative) Urine Ketones NEGATIVE (NEGATIVE) Urine Blood NEGATIVE (0-5) Joby/ul Urine Nitrite NEGATIVE (NEGATIVE) Urine Bilirubin NEGATIVE (NEGATIVE) Urine Urobilinogen NEGATIVE (0-1) mg/dL Ur Leukocyte Esterase NEGATIVE (NEGATIVE) Urine WBC (Auto) NONE (0-5) /HPF Urine RBC (Auto) NONE SEEN (0-2) /HPF U Epithel Cells (Auto) NONE (FEW) /HPF Urine Bacteria (Auto) NONE SEEN (NEGATIVE) /HPF Urine Culture Reflexed NO (NO) Urine Glucose NEGATIVE (NEGATIVE) mg/dL 03/29/20 Range/Units 05:00 WBC (4.0-10.5) K/mm3 RBC (4.1-5.6) M/mm3 Hgb (12.5-18.0) gm/dl Hct (42-50) % MCV (78-100) fl MCH (26-32) pg MCHC (32-36) g/dl RDW (11.5-14.0) % Plt Count (150-450) K/mm3 MPV (7.5-11.0) fl Gran % (36.0-66.0) % Eos # (Auto) (0-0.5) Absolute Lymphs (auto) (1.0-4.6) Absolute Monos (auto) (0.0-1.3) Lymphocytes % (24.0-44.0) % Monocytes % (0.0-12.0) % Eosinophils % (0.00-5.0) % Basophils % (0.0-0.4) % Absolute Granulocytes (1.4-6.9) Basophils # (0-0.4) Sodium (137-145) mmol/L Potassium (3.5-5.1) mmol/L Chloride (98-107) mmol/L Carbon Dioxide (22-30) mmol/L Anion Gap (5-15) MEQ/L BUN (9-20) mg/dL Creatinine (0.66-1.25) mg/dL Estimated GFR ML/MIN Glucose (74-106) mg/dL Lactic Acid (0.4-2.0) Calcium (8.4-10.2) mg/dL Magnesium 1.4 L (1.6-2.3) mg/dL Total Bilirubin (0.2-1.3) mg/dL AST (17-59) U/L ALT (0-50) U/L Alkaline Phosphatase (38-126) U/L Serum Total Protein (6.3-8.2) g/dL Albumin (3.5-5.0) g/dL Urine Color (YELLOW) Urine Appearance (CLEAR) Urine pH (5-6) Ur Specific Dent (1.005-1.025) Urine Protein (Negative) Urine Ketones (NEGATIVE) Urine Blood (0-5) Joby/ul Urine Nitrite (NEGATIVE) Urine Bilirubin (NEGATIVE) Urine Urobilinogen (0-1) mg/dL Ur Leukocyte Esterase (NEGATIVE) Urine WBC (Auto) (0-5) /HPF Urine RBC (Auto) (0-2) /HPF U Epithel Cells (Auto) (FEW) /HPF Urine Bacteria (Auto) (NEGATIVE) /HPF Urine Culture Reflexed (NO) Urine Glucose (NEGATIVE) mg/dL - Radiology Impressions Radiology Exams & Impressions: Radiology Procedures Category Date Time Status HAND (MINIMUM 3 VIEWS) Stat Exams 03/28/20 09:51 Completed VENOUS UNILAT/LIMITED EXTREMIT [US] Stat Exams 03/28/20 09:52 Completed Assessment/Plan (1) Cellulitis of hand Current Visit: Yes Status: Acute Assessment & Plan: Home on levaquin daily; he is to return to hospital for any sign of returning infection. Code(s): L03.119 - CELLULITIS OF UNSPECIFIED PART OF LIMB (2) Hypokalemia Current Visit: Yes Status: Acute Assessment & Plan: send home on K+ supplement. Code(s): E87.6 - HYPOKALEMIA (3) Hypomagnesemia Current Visit: Yes Status: Acute Assessment & Plan: home on mag ox 400mg daily Code(s): E83.42 - HYPOMAGNESEMIA (4) Anemia Current Visit: No Status: Chronic Qualifiers: Anemia type: iron deficiency Iron deficiency anemia type: unspecified iron deficiency Qualified Code(s): D50.9 - Iron deficiency anemia, unspecified Assessment & Plan: sees Heme Onc Code(s): D64.9 - ANEMIA, UNSPECIFIED Hospital Summary - Hospital Course Hospital Course: is a 74 year old male pt of Dr. Harris who came in through ER with L hand swelling, erythema, and pain and was admitted for cellulitis. He was taken up to [facility] a few days ago for CP/r/o ME and he had an IV placed in the dorsum of that hand. Since then he had pain and subsequent swelling. Unable to move the hand much. No fever. Overnight his hand edema has decreased and erythema resolved. He is able to move the hand and nearly to form a fist. Colleen po. Would really like to go home today to his cat. States he has no friends "I don't like to socialize." Potassium 2.9 this morning, he says this often happens when he's in the hospital and he's interested in a supplement. Will be sent home with levaquin po; he will watch carefully for signs of increased infection and return to hospital if needed. F/u with Dr. Harris in 1 week. - Vitals & Intake/Output Vital Signs: Vital Signs Temperature 98.2 F 03/29/20 08:00 Pulse Rate 62 03/29/20 08:00 Respiratory Rate 18 03/29/20 08:00 Blood Pressure 147/71 03/29/20 08:00 O2 Sat by Pulse Oximetry 97 03/29/20 08:00 Intake & Output: Intake & Output 03/26/20 03/27/20 03/28/20 03/29/20 11:59 11:59 11:59 11:59 Intake Total 2705 Output Total 475 Balance 2230 Weight 89.358 kg 89.358 kg - Lab Result Diagrams: 03/29/20 04:50 03/29/20 04:50 Lab Results-Last 24 Hrs: Lab Results-Last 24 Hours 03/28/20 03/28/20 03/28/20 Range/Units 09:55 10:00 10:00 WBC 6.5 (4.0-10.5) K/mm3 RBC 3.10 L (4.1-5.6) M/mm3 Hgb 9.8 L (12.5-18.0) gm/dl Hct 31.3 L (42-50) % MCV 101.0 H (78-100) fl MCH 31.6 (26-32) pg MCHC 31.3 L (32-36) g/dl RDW 14.0 (11.5-14.0) % Plt Count 219 (150-450) K/mm3 MPV 8.7 (7.5-11.0) fl Gran % 66.3 H (36.0-66.0) % Eos # (Auto) 0.12 (0-0.5) Absolute Lymphs (auto) 1.09 (1.0-4.6) Absolute Monos (auto) 0.93 (0.0-1.3) Lymphocytes % 16.8 L (24.0-44.0) % Monocytes % 14.4 H (0.0-12.0) % Eosinophils % 1.9 (0.00-5.0) % Basophils % 0.6 (0.0-0.4) % Absolute Granulocytes 4.29 (1.4-6.9) Basophils # 0.04 (0-0.4) Sodium 137 (137-145) mmol/L Potassium 3.6 (3.5-5.1) mmol/L Chloride 98 (98-107) mmol/L Carbon Dioxide 31 H (22-30) mmol/L Anion Gap 11.1 (5-15) MEQ/L BUN 12 (9-20) mg/dL Creatinine 1.10 (0.66-1.25) mg/dL Estimated GFR > 60.0 ML/MIN Glucose 85 (74-106) mg/dL Lactic Acid 0.7 (0.4-2.0) Calcium 8.9 (8.4-10.2) mg/dL Magnesium (1.6-2.3) mg/dL Total Bilirubin 0.70 (0.2-1.3) mg/dL AST 28 (17-59) U/L ALT 10 (0-50) U/L Alkaline Phosphatase 70 (38-126) U/L Serum Total Protein 7.0 (6.3-8.2) g/dL Albumin 3.7 (3.5-5.0) g/dL Urine Color (YELLOW) Urine Appearance (CLEAR) Urine pH (5-6) Ur Specific Dent (1.005-1.025) Urine Protein (Negative) Urine Ketones (NEGATIVE) Urine Blood (0-5) Joby/ul Urine Nitrite (NEGATIVE) Urine Bilirubin (NEGATIVE) Urine Urobilinogen (0-1) mg/dL Ur Leukocyte Esterase (NEGATIVE) Urine WBC (Auto) (0-5) /HPF Urine RBC (Auto) (0-2) /HPF U Epithel Cells (Auto) (FEW) /HPF Urine Bacteria (Auto) (NEGATIVE) /HPF Urine Culture Reflexed (NO) Urine Glucose (NEGATIVE) mg/dL 03/28/20 03/29/20 03/29/20 Range/Units 18:44 04:50 04:50 WBC 3.8 L (4.0-10.5) K/mm3 RBC 2.65 L (4.1-5.6) M/mm3 Hgb 8.4 L (12.5-18.0) gm/dl Hct 27.0 L (42-50) % MCV 101.9 H (78-100) fl MCH 31.7 (26-32) pg MCHC 31.1 L (32-36) g/dl RDW 13.8 (11.5-14.0) % Plt Count 159 (150-450) K/mm3 MPV 8.8 (7.5-11.0) fl Gran % 60.0 (36.0-66.0) % Eos # (Auto) 0.12 (0-0.5) Absolute Lymphs (auto) 0.81 L (1.0-4.6) Absolute Monos (auto) 0.55 (0.0-1.3) Lymphocytes % 21.6 L (24.0-44.0) % Monocytes % 14.7 H (0.0-12.0) % Eosinophils % 3.2 (0.00-5.0) % Basophils % 0.5 (0.0-0.4) % Absolute Granulocytes 2.25 (1.4-6.9) Basophils # 0.02 (0-0.4) Sodium 137 (137-145) mmol/L Potassium 2.9 L* (3.5-5.1) mmol/L Chloride 104 (98-107) mmol/L Carbon Dioxide 27 (22-30) mmol/L Anion Gap 8.9 (5-15) MEQ/L BUN 16 (9-20) mg/dL Creatinine 1.14 (0.66-1.25) mg/dL Estimated GFR > 60.0 ML/MIN Glucose 101 (74-106) mg/dL Lactic Acid (0.4-2.0) Calcium 7.8 L (8.4-10.2) mg/dL Magnesium (1.6-2.3) mg/dL Total Bilirubin 0.40 (0.2-1.3) mg/dL AST 22 (17-59) U/L ALT 7 (0-50) U/L Alkaline Phosphatase 50 (38-126) U/L Serum Total Protein 5.4 L (6.3-8.2) g/dL Albumin 2.7 L (3.5-5.0) g/dL Urine Color YELLOW (YELLOW) Urine Appearance CLEAR (CLEAR) Urine pH 6.0 (5-6) Ur Specific Dent 1.011 (1.005-1.025) Urine Protein NEGATIVE (Negative) Urine Ketones NEGATIVE (NEGATIVE) Urine Blood NEGATIVE (0-5) Joby/ul Urine Nitrite NEGATIVE (NEGATIVE) Urine Bilirubin NEGATIVE (NEGATIVE) Urine Urobilinogen NEGATIVE (0-1) mg/dL Ur Leukocyte Esterase NEGATIVE (NEGATIVE) Urine WBC (Auto) NONE (0-5) /HPF Urine RBC (Auto) NONE SEEN (0-2) /HPF U Epithel Cells (Auto) NONE (FEW) /HPF Urine Bacteria (Auto) NONE SEEN (NEGATIVE) /HPF Urine Culture Reflexed NO (NO) Urine Glucose NEGATIVE (NEGATIVE) mg/dL 03/29/20 Range/Units 05:00 WBC (4.0-10.5) K/mm3 RBC (4.1-5.6) M/mm3 Hgb (12.5-18.0) gm/dl Hct (42-50) % MCV (78-100) fl MCH (26-32) pg MCHC (32-36) g/dl RDW (11.5-14.0) % Plt Count (150-450) K/mm3 MPV (7.5-11.0) fl Gran % (36.0-66.0) % Eos # (Auto) (0-0.5) Absolute Lymphs (auto) (1.0-4.6) Absolute Monos (auto) (0.0-1.3) Lymphocytes % (24.0-44.0) % Monocytes % (0.0-12.0) % Eosinophils % (0.00-5.0) % Basophils % (0.0-0.4) % Absolute Granulocytes (1.4-6.9) Basophils # (0-0.4) Sodium (137-145) mmol/L Potassium (3.5-5.1) mmol/L Chloride (98-107) mmol/L Carbon Dioxide (22-30) mmol/L Anion Gap (5-15) MEQ/L BUN (9-20) mg/dL Creatinine (0.66-1.25) mg/dL Estimated GFR ML/MIN Glucose (74-106) mg/dL Lactic Acid (0.4-2.0) Calcium (8.4-10.2) mg/dL Magnesium 1.4 L (1.6-2.3) mg/dL Total Bilirubin (0.2-1.3) mg/dL AST (17-59) U/L ALT (0-50) U/L Alkaline Phosphatase (38-126) U/L Serum Total Protein (6.3-8.2) g/dL Albumin (3.5-5.0) g/dL Urine Color (YELLOW) Urine Appearance (CLEAR) Urine pH (5-6) Ur Specific Dent (1.005-1.025) Urine Protein (Negative) Urine Ketones (NEGATIVE) Urine Blood (0-5) Joby/ul Urine Nitrite (NEGATIVE) Urine Bilirubin (NEGATIVE) Urine Urobilinogen (0-1) mg/dL Ur Leukocyte Esterase (NEGATIVE) Urine WBC (Auto) (0-5) /HPF Urine RBC (Auto) (0-2) /HPF U Epithel Cells (Auto) (FEW) /HPF Urine Bacteria (Auto) (NEGATIVE) /HPF Urine Culture Reflexed (NO) Urine Glucose (NEGATIVE) mg/dL - Radiology Exams Ordered Rad Exams-Entire Visit: Radiology Procedures Category Date Time Status HAND (MINIMUM 3 VIEWS) Stat Exams 03/28/20 09:51 Completed VENOUS UNILAT/LIMITED EXTREMIT [US] Stat Exams 03/28/20 09:52 Completed - Discharge Disposition: Home, Self-Care Condition: Good Prescriptions: New Potassium Chloride 10 Meq Tab* [Klor Con 10 MEQ] 20 meq PO DAILY #60 tab Levofloxacin [Levaquin] 500 mg PO DAILY #9 tablet Mag Oxide/D3/Turmeric Rt Xt [Magnesium-Vit D3-Turmeric Tab] 1 each PO DAILY #30 tablet Continue Levothyroxine Sodium [Synthroid] 150 mcg PO DAILY Vitamin E 400 Units [Vitamin E 400 UNIT SOFTGEL] 400 unit PO DAILY Alendronate Sodium 70 mg [Fosamax 70 MG] 70 mg PO WEEKLY Sacubitril/Valsartan [Entresto 24 mg-26 mg Tablet] 1 each PO BID Metoprolol Tartrate 25 mg [Lopressor 25MG Tab] 25 mg PO DAILY Fludrocortisone Acetate 0.1 mg PO DAILY Oxycodone HCl [Oxycontin] 10 mg PO Q4H PRN PRN PRN Reason: Pain Non-Formulary Drug [Non-Formulary Item] 1 cap PO BID Ferrous Sulfate [Iron] 650 mg PO BID No Action Calcium Citrate/Vitamin D3 [Calcitrate + Vit D Caplet] 1 each PO BID Furosemide 40 mg PO DAILY Follow up with: ROLANDO HARRIS MD [Primary Care Provider] - 04/06/20 10:30 am
[2020-03-29] MEDS ORDERED: VANCOMYCIN 1 GRAM/200 ML BAG 1 GM/200 ML PIGGYBACK IV SCH (10:00)
[2020-03-29] MEDS ORDERED: SYNTHROID 150 MCG PO SCH (10:00)
[2020-03-29] MEDS ORDERED: FLORINEF PO SCH (10:00)
[2020-03-29] MEDS ORDERED: Lopressor 25MG Tab PO SCH (10:00)
[2020-03-29] MEDS ORDERED: FLUDROCORTISONE ACETATE 0.1 MG PO SCH (10:00)
[2020-03-29 13:06] VITALS: BP 145/56; PULSE 66
[2020-03-30] MEDS ORDERED: TROUGH DRUG LEVELS IJ ONE (21:30)
== END 2020-03-29 13:30 | disposition home or self-care (01) ==
LOC: ED 09:44 → MED SURG 12:35
PROVIDERS: ADMIT Family Medicine; ATTEND Family Medicine
DX: L03.114 Cellulitis of left upper limb (principal); M79.642 Pain in left hand; I10 Essential (primary) hypertension; E03.9 Hypothyroidism, unspecified; E87.6 Hypokalemia; D64.9 Anemia, unspecified; E83.42 Hypomagnesemia; Z79.899 Other long term (current) drug therapy
CPT/HCPCS: 36000; 36415; 73130; 80053; 81001; 83605; 83735; 84132; 85025; 87040; 93268; 93971; 94760; 96365; 96368; 96374; 99284; J1885; J2270; J3475; J3480; A9270-GY; G0378; J3370